=== PATIENT | female | born 1945 | race African-American/Black ===

== ENCOUNTER 2016-09-15 21:53 | Inpatient (IN) | payer MEDICARE, OTHER ==
[~2016-09-15] VITALS: Ht 160 cm; Wt 88.9 kg
[~2016-09-15 21:53] MED LIST: CLON0.1T78 PO; ENAL20TA31 PO; FURO-570 PO; GLYB2.5T6 PO; METF500T64 PO; METO-352 PO; POTA8CER PO
[2016-09-15 21:55] VITALS: BP 155/80
--- NOTE | 2016-09-16 01:25 | NUR ---
TO ER BED 4
--- NOTE | 2016-09-16 01:38 | NUR ---
PATIENT C/O DIZZINESS, H/A, CHILLS , SEEN BY PMD THIS MORNING WITH PRESCRIPTION BUT NOT YET DELIVERED YET DENIES N/V/D; SKIN IS PINK/WARM/DRY; AAOX4 WITH EVEN AND STEADY GAIT; LUNGS CLEAR BL; HR EVEN AND REGULAR; PT DENIES ANY FEVER, CP, SOB, OR COUGH AT THIS TIME; PATIENT STATES PAIN OF 8/10 AT THIS TIME; VSS; PATIENT POSITIONED FOR COMFORT; HOB ELEVATED; BEDRAILS UP X2; BED DOWN. ER MD MADE AWARE OF PT STATUS.
--- NOTE | 2016-09-16 01:45 | NUR ---
Patient being evaluated by physician at bedside.
[2016-09-16 01:59] LABS: BASOPHILS % (AUTO) 0.3 % (0.0-2.0); EOSINOPHILS # (AUTO) 0.1 K/uL (0-0.4); HEMATOCRIT 38.6 % (36-48); HEMOGLOBIN 12.7 g/dL (12.0-16.0); LYMPHOCYTES # (AUTO) 0.6 K/uL (2.5-16.5); LYMPHOCYTES % (AUTO) 4.3 % (20.5-51.1); MEAN CORPUSCULAR HEMOGLOBIN 26 pg (27-31); MEAN CORPUSCULAR HGB CONC 33 g/dL (33-37); MEAN CORPUSCULAR VOLUME 79 fL (80-94); MONOCYTES # (AUTO) 0.6 K/uL (0.8-1.0); MONOCYTES % (AUTO) 4.9 % (1.7-9.3); NEUTROPHILS # (AUTO) 11.9 K/uL (1.8-7.7); NEUTROPHILS % (AUTO) 89.5 % (42.2-75.2); PLATELET COUNT (AUTO) 207 K/uL (140-450); RED BLOOD CELL COUNT(AUTO) 4.88 MIL/uL (4.20-5.40); RED CELL DISTRIBUTION WIDTH 13.3 % (11.6-13.7); WHITE BLOOD COUNT (AUTO) 13.2 K/uL (4.8-10.8)
[2016-09-16 02:09] LABS: ANION GAP 10.2 (8-16); CALCIUM 8.5 mg/dL (8.5-10.1); CARBON DIOXIDE 27.1 mmol/L (21-32); CHLORIDE 100 mmol/L (98-107); CREATININE 1.2 mg/dL (0.6-1.3); GLUCOSE 205 mg/dL (74-106); POTASSIUM 3.3 mmol/L (3.5-5.1); SODIUM SERUM 134 mmol/L (136-145); UREA NITROGEN, BLOOD 16 mg/dL (7-18)
[2016-09-16 02:15] LABS: ALANINE AMINOTRANSFERASE 31 U/L (12-78); ALBUMIN 2.9 g/dL (3.4-5.0); ALKALINE PHOSPHATASE 73 U/L (46-116); ASPARTATE AMINOTRANSFERASE 36 U/L (15-37); TOTAL BILIRUBIN 0.7 mg/dL (0.0-1.0); TOTAL PROTEIN, SERUM 7.2 g/dL (6.4-8.2)
[2016-09-16 02:19] LABS: INR 1.3 (0.8-1.2); PROTHROMBIN TIME 12.2 secs (10.8-13.4)
[2016-09-16 02:29] LABS: APPEARANCE,URINE CLEAR (CLEAR); BILIRUBIN,URINE 1+ (NEGATIVE); BLOOD, URINE 2+ (NEGATIVE); COLOR,URINE YELLOW (YELLOW); LEUKOCYTE ESTERASE ,URINE NEGATIVE (NEGATIVE); NITRITE, URINE NEGATIVE (NEGATIVE); PROTEIN,URINE 2+ (NEGATIVE); UGLUCOSE NEGATIVE (NEGATIVE)
[2016-09-16 02:41] LABS: BACTERIA,URINE 2+ /HPF (None Seen); ICTOTEST NEGATIVE (NEGATIVE); RBC,URINE 0-3 /HPF (0-5); SQUAMOUS EPITHELIAL CELL,UR 0-3 /LPF (0-3 (FEW)); WBC,URINE 0-3 /HPF (0-5)
[2016-09-16 02:42] LABS: MUCUS,URINE 1+ /LPF (None Seen)
[2016-09-16] MEDS ORDERED: LEVOFLOXACIN 750 MG/D5W PREMIX 150 ML IV ONE (03:00)
--- NOTE | 2016-09-16 03:48 | NUR ---
PT C/O QUEVEDO, TYLENOL GIVEN.
[2016-09-16] MEDS ORDERED: ACETAMINOPHEN EXTRA STRENGTH 500 MG TAB PO ONE (03:50)
--- NOTE | 2016-09-16 04:42 | NUR ---
Patient will be admitted to care of DR HOWELL. Admited to MED SURG. Will go to room 105A. Belongings list completed. Report to MARISEL Santa.
[2016-09-16 05:05] VITALS: BP 188/90
--- NOTE | 2016-09-16 05:05 | NUR ---
Admitted from ER TO MED SURGICAL UNIT, with chief complaint of SHORTNESS OF BREATH , 70 y/o ,Female, Cooperative, AWAKE, A/OX4. RESPIRATION EVEN AND UNLABORED. LUNG SOUNDS DIMINISHED ON BILATERAL LUNG AUSCULTATION. WITH NOTED COUGHING, STATED SPUTUM, MINIMAL AMOUNT BUT COLOR IS YELLOW. 02 SAT - 92% ON ROOM AIR. WITH PITTING EDEMA 2+ ON BILATERAL LOWER EXTREMITIES. SKIN INTACT. COMPLAINT OF GENERALIZED BODY WEAKNESS AND PAIN, 4/10. WILL CALL MD FOR ORDERS. oriented to call light, bed, phone,television, bathroom, smoking policy,visiting hours, procedures, ID bracelet on. Belongings list checked.
--- NOTE | 2016-09-16 05:15 | NUR ---
Patient's Plan of Care was discussed and reviewed with HOSPITAL CHIEF EXECUTIVE OFFICER: DONG BERMUDEZ
--- NOTE | 2016-09-16 05:20 | NUR ---
PUT ON 02 AT 2 LITERS ORDERED, 02 SAT INCREASE FROM 92% TO 98%,
--- NOTE | 2016-09-16 06:00 | NUR ---
INFORMED DR. HOWELL REGARDING PATIENTS K LEVEL, REQUEST FOR PAIN MEDICATION, AND BP MEDICATIONS AT HOME, PATIENT IS DIABETIC. WILL ORDER IN THE COMPUTER ALL NEEDED MEDICATIONS FOR THE PATIENT.
[2016-09-16] MEDS ORDERED: ACETAMINOPHEN 325 MG TAB PO PRN (06:10)
[2016-09-16] MEDS ORDERED: DEXTROSE 50% 50 ML SYR IVP PRN (06:10)
[2016-09-16] MEDS ORDERED: LORazepam 2 MG/ML VIAL IVP PRN (06:10)
[2016-09-16] MEDS ORDERED: HYDROcodone/APAP 5/325 MG 1 TAB TAB PO PRN (06:10)
[2016-09-16] MEDS ORDERED: ONDANSETRON 4 MG/2 ML VIAL IVP PRN (06:10)
[2016-09-16] MEDS: ACETAMINOPHEN 325 MG TAB PO PRN ×3 (06:51→21:00)
--- NOTE | 2016-09-16 06:51 | NUR ---
WITH FEVER - 101.4, MEDICATED WITH TYLENOL 650 MG. PO.
[2016-09-16] MEDS: BLOOD GLUCOSE MONITORING 1 DEV DEV FS SCH ×4 (06:58→21:00)
[2016-09-16] MEDS: LEVOFLOXACIN 500 MG/D5W PREMIX 100 ML IV SCH (07:00)
--- NOTE | 2016-09-16 07:12 | NUR ---
RECEIVED REPORT FROM NIGHT METAL WIRE TECHNICIAN. PT RESTING IN BED. NO S/S OF ACUTE DISTRESS. ON O2 2L NC. IV SITE PATENT AND INTACT. PT DENIES PAIN. CALL LIGHT WITHIN REACH. SAFETY MEASURES ENSURED. WILL CONTINUE TO MONITOR.
--- NOTE | 2016-09-16 07:52 | NUR ---
RESTING IN BED, NO SOB NOTED. ENDORSED TO MARISEL FISH FOR MONITORING OF TEMPERATURE AND CONTINUITY OF CARE.
[2016-09-16 08:14] VITALS: BP 160/85
[2016-09-16] MEDS: ENALAPRIL 10 MG TAB PO SCH (09:00)
[2016-09-16] MEDS: cloNIDine 0.1 MG TAB PO SCH ×2 (09:09→21:00)
[2016-09-16] MEDS: METOPROLOL SUCCINATE 50 MG TABER PO SCH (09:10)
[2016-09-16] MEDS: POTASSIUM CHLORIDE 8 MEQ TABER PO SCH (09:10)
[2016-09-16] MEDS: glyBURIDE 2.5 MG TAB PO SCH (09:10)
[2016-09-16] MEDS: FUROSEMIDE 40 MG TAB PO SCH (09:10)
[2016-09-16] MEDS: metFORMIN 500 MG TAB PO SCH ×2 (09:10→20:59)
--- NOTE | 2016-09-16 09:13 | NUR ---
PATIENT HAS BEEN SCREENED AND CATEGORIZED HIGH NUTRITION RISK. PATIENT WILL BE SEEN WITHIN 1-2 DAYS OF ADMISSION. 09/16/16-09/17/[address]
--- NOTE | 2016-09-16 09:43 | NUR ---
PT TOLERATED AM MEDS WELL. AAOX4. NO S/S OF ACUTE DISTRESS. ON O2 2L NC. PT DENIES PAIN. CALL LIGHT WITHIN REACH. SAFETY MEASURES ENSURED. WILL CONTINUE TO MONITOR.
[2016-09-16 11:30] VITALS: BP 208/110
--- NOTE | 2016-09-16 11:40 | NUR ---
PAGED DR. HOWELL REGARDING BLOOD PRESSURE. AWAITING CALL BACK.
--- NOTE | 2016-09-16 12:00 | NUR ---
PT REFUSED INSULIN AT THIS TIME BECAUSE SHES DOESN'T FEEL LIKE EATING OR DRINKING ANYTHING.
--- NOTE | 2016-09-16 12:11 | NUR ---
09/16/16 RD INITIAL ASSESSMENT COMPLETED PLEASE REFER TO NUTRITION ASSESSMENT UNDER CARE ACTIVITY FOR ESTIMATED NUTRITIONAL NEEDS. RD RECOMMENDATIONS: 1. CONTINUE CCHO 60 GM, 2GM NA DIET TOLERATED PER MD 2. ENCOURAGE ADEQUATE PO INTAKE 3. RD WILL F/U 3-5 DAYS; MODERATE RISK. LUDIVINA HALLMAN RD
[2016-09-16] MEDS: cloNIDine 0.1 MG TAB PO PRN ×2 (12:12→23:56)
[2016-09-16] MEDS ORDERED: guaiFENesin DM SUGAR FREE 100 MG/5 ML UDBTL PO PRN (12:25)
--- NOTE | 2016-09-16 12:30 | NUR ---
PT RESTING IN BED. NO S/S OF ACUTE DISTRESS PT'S BP IS 183/103. NO S/S OF ACUTE DISTRESS. PT DENIES PAIN. ON O2 2L NC. CALL LIGHT WITHIN REACH. SAFETY MEASURES ENSURED. WILL CONTINUE TO MONITOR.
[2016-09-16] MEDS: INSULIN LISPRO SLIDING SCALE 100 UNITS/ML VIAL SUBQ PRN (13:43)
--- NOTE | 2016-09-16 13:43 | NUR ---
CM NOTE PER ANTHONY JACKSON WHO IS COVERING FOR [facility] TODAY, REVIEWS SHOULD BE SENT TO [facility] FAX# [phone] PH# [phone]. INITIAL REVIEW SENT TO [facility] FAX# [phone] PH# [phone] [facility]
--- NOTE | 2016-09-16 15:26 | NUR ---
PT RESTING IN BED. NO S/S OF ACUTE DISTRESS. PT DENIES PAIN. IV SITE PATENT AND INTACT. CALL LIGHT WITHIN REACH. SAFETY MEASURES ENSURED. WILL CONTINUE TO MONITOR.
[2016-09-16 16:00] VITALS: BP 168/88
--- NOTE | 2016-09-16 16:04 | NUR ---
PT RESTING IN BED. NO S/S OF ACUTE DISTRESS NOTED. COOLING MEASURES IN PLACE. TYLENOL GIVEN. WILL CONTINUE TO MONITOR.
--- NOTE | 2016-09-16 16:49 | NUR ---
PT'S BLOOD GLUCOSE 68. APPLE JUICE WITH 3 PACKETS OF SUGAR GIVEN. UPON RECHECK BLOOD GLUCOSE IS 91
--- NOTE | 2016-09-16 19:28 | NUR ---
ENDORSED PLAN OF CARE TO NIGHT RN. PT REMAINS IN STABLE CONDITION.
--- NOTE | 2016-09-16 19:30 | NUR ---
RECEIVED REPORT FORM DAY NURSEPOLINA. PATIENT RESTING IN BED, WATCHING TELEVISION. NO RESPIRATORY DISTRESS, SOB, OR DISCOMFORT. INITIAL ASSESSMENT AND BODY CHECK DONE. PATIENT IS AOX4, SKIN IS INTACT, IV ACCESS TO LEFT AC 20G, PATENT. PITTING EDEMA NOTED TO BLE. DISCUSSED PLAN OF CARE, MEDICATION REGIMENT, AND PAIN MANAGEMENT WITH PATIENT. PATIENT VERBALIZED UNDERSTANDING. PLACED PATIENT ON SAFETY/FALL PRECAUTIONS. CALL LIGHT LEFT WITHIN REACH, WILL CONTINUE TO MONITOR.
--- NOTE | 2016-09-16 21:57 | NUR ---
PATIENT IN BED, SLEEPING. NO RESPIRATORY DISTRESS, SOB, OR DISCOMFORT. CALL LIGHT LEFT WITHIN REACH, WILL CONTINUE TO MONITOR.
[2016-09-17] VITALS (19 sets, daily range): BP systolic 134–213; BP diastolic 64–127
[2016-09-17] MEDS ORDERED: CLINDAMYCIN 600 MG/4 ML VIAL ONE ×2 (00:22→05:00)
--- NOTE | 2016-09-17 00:50 | NUR ---
PATIENT RESTING IN BED, WATCHING TELEVISION. NO RESPIRATORY DISTRESS, SOB, OR DISCOMFORT. CALL LIGHT LEFT WITHIN REACH, WILL CONTINUE TO MONITOR.
[2016-09-17] MEDS: cloNIDine 0.1 MG TAB PO PRN ×4 (01:30→15:14)
--- NOTE | 2016-09-17 03:05 | NUR ---
PATIENT ASLEEP. NO RESPIRATORY DISTRESS, SOB, OR DISCOMFORT. CALL LIGHT LEFT WITHIN REACH, WILL CONTINUE TO MONITOR.
[2016-09-17] MEDS ORDERED: CLINDAMYCIN 600 MG in DEXTROSE 5% 50 ML IV SCH ×3 (05:00)
[2016-09-17 06:01] LABS: BASOPHILS % (AUTO) 0.4 % (0.0-2.0); EOSINOPHILS # (AUTO) 0.2 K/uL (0-0.4); HEMATOCRIT 39.6 % (36-48); HEMOGLOBIN 12.9 g/dL (12.0-16.0); LYMPHOCYTES # (AUTO) 1.3 K/uL (2.5-16.5); LYMPHOCYTES % (AUTO) 10.7 % (20.5-51.1); MEAN CORPUSCULAR HEMOGLOBIN 26 pg (27-31); MEAN CORPUSCULAR HGB CONC 33 g/dL (33-37); MEAN CORPUSCULAR VOLUME 80 fL (80-94); MONOCYTES # (AUTO) 0.9 K/uL (0.8-1.0); NEUTROPHILS # (AUTO) 9.8 K/uL (1.8-7.7); NEUTROPHILS % (AUTO) 79.9 % (42.2-75.2); PLATELET COUNT (AUTO) 225 K/uL (140-450); RED BLOOD CELL COUNT(AUTO) 4.98 MIL/uL (4.20-5.40); RED CELL DISTRIBUTION WIDTH 13.6 % (11.6-13.7); WHITE BLOOD COUNT (AUTO) 12.2 K/uL (4.8-10.8)
--- NOTE | 2016-09-17 06:03 | NUR ---
PATIENT SLEEPING. NO RESPIRATORY DISTRESS, SOB, OR DISCOMFORT. CALL LIGHT LEFT WITHIN REACH, WILL CONTINUE TO MONITOR.
[2016-09-17 06:29] LABS: ANION GAP 9.5 (8-16); CALCIUM 8.9 mg/dL (8.5-10.1); CARBON DIOXIDE 29.5 mmol/L (21-32); CHLORIDE 102 mmol/L (98-107); CREATININE 0.9 mg/dL (0.6-1.3); GLUCOSE 61 mg/dL (74-106); SODIUM SERUM 138 mmol/L (136-145); UREA NITROGEN, BLOOD 13 mg/dL (7-18)
[2016-09-17] MEDS: BLOOD GLUCOSE MONITORING 1 DEV DEV FS SCH ×5 (06:30→20:50)
--- NOTE | 2016-09-17 06:30 | NUR ---
PATIENT BLOOD GLUCOSE LEVEL 59. PATIENT IS AWAKE AND ALERT. EASILY AROUSABLE TO NAME. ADMINISTERED 1 BOX OF ORANGE JUICE, WILL REASSESS.
[2016-09-17] MEDS: LEVOFLOXACIN 500 MG/D5W PREMIX 100 ML IV SCH (06:33)
--- NOTE | 2016-09-17 06:45 | NUR ---
PATIENT GLUCOSE LEVEL RE-CHECKED FOLLOWING ORANGE JUICE ADMINISTRATION, LEVEL AT 90. NO RESPIRATORY DISTRESS, SOB, OR DISCOMFORT. CALL LIGHT LEFT WITHIN REACH, WILL CONTINUE TO MONITOR.
--- NOTE | 2016-09-17 07:22 | NUR ---
REPORT GIVEN TO DAY NURSE, CLAUDIA. PATIENT RESTING IN BED, STABLE. NO RESPIRATORY DISTRESS, SOB, OR DISCOMFORT. ALL NEEDS ATTENDED TO DURING SHIFT, CALL LIGHT LEFT WITHIN REACH.
--- NOTE | 2016-09-17 07:23 | NUR ---
PT ALERT AND ORIENTED X4, WITH O2 AT 2L/MIN VIA NC, HOB ELEVATED AT LEAST 30 DEGREES. NO SIGNS OF ACUTE DISTRESS. SKIN IS WARM AND DRY. NO SIGNS OF ANY BOWEL/BLADDER DISCOMFORT. DENIES OF ANY PAIN OR DISCOMFORT. ALL NEEDS ATTENDED, SAFETY PRECAUTIONS MAINTAINED. CALL LIGHT WITHIN REACH.
[2016-09-17] MEDS: FUROSEMIDE 40 MG TAB PO SCH (08:25)
[2016-09-17] MEDS: metFORMIN 500 MG TAB PO SCH ×2 (08:25→20:50)
[2016-09-17] MEDS: cloNIDine 0.1 MG TAB PO SCH ×2 (08:26→20:00)
[2016-09-17] MEDS: POTASSIUM CHLORIDE 8 MEQ TABER PO SCH (08:26)
[2016-09-17] MEDS: glyBURIDE 2.5 MG TAB PO SCH (08:26)
[2016-09-17] MEDS: METOPROLOL SUCCINATE 50 MG TABER PO SCH (08:26)
[2016-09-17] MEDS: ACETAMINOPHEN 325 MG TAB PO PRN ×2 (08:30→20:44)
[2016-09-17] MEDS: ENALAPRIL 10 MG TAB PO SCH (08:31)
--- NOTE | 2016-09-17 08:35 | NUR ---
NOTED PT'S BP ELEVATED 199/118, PAGED DR. HOWELL, Y. DUE MEDS GIVEN. ALSO C/O OF HEADACHE 02/02. SEE PAIN ASSESSMENT FOR MORE INFO. AWAITING FOR MD'S RESPONSE. WILL CONTINUE TO MONITOR.
--- NOTE | 2016-09-17 08:36 | NUR ---
CHARGE NURSE AWARE OF ELEVATED BP.
--- NOTE | 2016-09-17 09:02 | NUR ---
/SPOKE WITH Rachel DAI. REPORTED PT'S CURRENT BP 200/127. NEW MED AND IMAGING ORDERS RECEIVED. NOTED AND CARRIED OUT. PT IS ASLEEP IN BED. ON SIGNS OF ACUTE DISTRESS AT THIS TIME. CONTINUE TO MONITOR.
[2016-09-17] MEDS: hydrALAZINE 20 MG/ML VIAL IVP PRN ×2 (09:19→17:31)
[2016-09-17] MEDS: SPIRONOLACTONE 25 MG TAB PO SCH ×2 (09:21→16:55)
--- NOTE | 2016-09-17 09:35 | NUR ---
SPOKE WITH DR. LYNDA Hodge. REPORT PT'S CURRENT STATUS. RECEIVED NEW ORDER TO TRANSFER CARE TO TELEMETRY MONITORING. NOTED AND CARRIED OUT. DR. JUNIOR ALSO ON THE UNIT. SEEN PT AND ALSO MADE AWARE OF PT'S CURRENT STATUS. CONTINUE TO MONITOR.
--- NOTE | 2016-09-17 09:39 | NUR ---
WAS NOTIFIED BY DR. JUNIOR AND CHARGE NURSE TO TRANSFER TO ICU. CHARGE NURSE TO CALL FOR AVAILABLE BED. PT MADE AWARE.
--- NOTE | 2016-09-17 10:00 | NUR ---
PT ALERT AND RESPONSIVE, NO SIGNS OF ACUTE DISTRESS. WENT OFF UNIT FOR CT. CALLED ABILIO JOINER ICU AND GIVEN REPORT. PT TO BE TRANSPORTED TO ICU AFTER PROCEDURE.
[2016-09-17] MEDS ORDERED: POTASSIUM CHLORIDE 10 MEQ TABER PO SCH (10:25)
--- NOTE | 2016-09-17 10:27 | NUR ---
DR HOWELL, Ayesha ON UNIT. REPORTED PT TRANSFERRED TO ICU. RECEIVED LAB AND MED ORDERS. ENDORSED TO ICU NURSE ABILIO.
--- NOTE | 2016-09-17 10:30 | NUR ---
RECEIVED FROM TELE IN BED, SHE IS LETHALGIC AT THE TIME, AWAKE BY NAME CALL SKIN IS DRY AND WARM TO TOUCH. HAS O2 2L/NC IV FLUID HAS #20 ON LEFT AC ABD SOFT SKIN INTACT SHE IS ADMITED TO ICU #5.
--- NOTE | 2016-09-17 12:00 | NUR ---
RECEIVED REPORT FROM CHARGE NURSE ABILIO JOINER. PT AWAKE, ALERT AND ORIENTED. BEDSIDE MONITOR SHOWS BP 144/87, HR 83, O2 SAT 99% AT THIS TIME. PT ON O2 NC 2L/MIN. NO S/S OF RESPIRATORY DISTRESS NOTED. IV TO LEFT AC #20 SALINE LOCKED. SKIN INTACT, PT CAN MOVE ALL HER EXTREMITIES. POC DISCUSSED WITH PT, PT VERBALIZED UNDERSTANDING, HOB ELEVATED 30 DEGREES, CALL LIGHT IN REACH, WILL CONTINUE TO MONITOR.
--- NOTE | 2016-09-17 12:30 | NUR ---
BEDPAN GIVEN TO PT, PT HAD 250 ML CLEAR YELLOW URINE OUTPUT. CLEANED PT. WILL CONTINUE TO MONITOR.
[2016-09-17] MEDS: CLINDAMYCIN 600 MG in DEXTROSE 5% 50 ML IV SCH ×2 (13:29→20:05)
--- NOTE | 2016-09-17 14:00 | NUR ---
BLOOD SUGAR CHECKED 83.
--- NOTE | 2016-09-17 14:29 | NUR ---
BP 140/95. HR 72. O2 SAT 100%. PT SLEEPING AT THIS TIME.
--- NOTE | 2016-09-17 14:58 | NUR ---
BP 143/84, HR 72. SPO2 97% AT THIS TIME.
--- NOTE | 2016-09-17 15:21 | NUR ---
BLOOD SUGAR CHECKED AT 1453 SHOWS 37. DEXTROSE 50% ABBOJECT 50 ML IVP GIVEN PER MD ORDER BLOOD SUGAR BELOW 60. AT 1510, SERVED PT BEDPAN, PT HAD 200 ML CLEAR YELLOW URINE OUTPUT. CLEANED PT.RECHECK BLOOD SUGAR AT 1521 SHOWS 172, NO INSULIN COVERAGE NEEDED PT NPO. CHARGE NURSE ACEVEDO AWARE.
--- NOTE | 2016-09-17 15:46 | NUR ---
US TECH AT BEDSIDE.
--- NOTE | 2016-09-17 17:30 | NUR ---
DINNER TRAY SERVED. PT'S SON AT BEDSIDE. PT HAD 70% OF THE FOOD. PT CHATTING WITH FAMILY
--- NOTE | 2016-09-17 18:37 | NUR ---
PT AWAKE,ALERT, AND ORIENTED. BP 151/87. HR 92. O2 SAT 98%.
--- NOTE | 2016-09-17 19:02 | NUR ---
PT AWAKE, ALERT, AND ORIENTED. NO S/S OF RESPIRATORY DISTRESS NOTED. BP 156/64. HR 88. O2 SAT 97% AT THIS TIME.
--- NOTE | 2016-09-17 19:24 | NUR ---
BEDSIDE REPORT GIVEN TO RADHA JOINER.
--- NOTE | 2016-09-17 19:24 | NUR ---
RECEIVED REPORT FROM DAY SHIFT RN MAGAN. FULL CODE, ON GANG PLANK WORKMAN, HIGH BP. AWAKE, ALERT, ORIENTED. WITH OXYGEN AT 2LPM/NASAL CANNULA. PERIPHERAL IV G20 ON LEFT ARM SALINE LOCK. SKIN INTACT.
--- NOTE | 2016-09-17 20:00 | NUR ---
PATIENT SEEN AND EXAMINED BY DR. HOWELL. INFORMED OF HIGH BP TRENDS.
--- NOTE | 2016-09-17 20:30 | NUR ---
CALLED FROM PHARMACY [facility] ORDER CLONIDINE 0.2 MG TID ,PHARMACY TOLD HIGH DOSE PER DAY NORMAL 0.4 MG/DAY, DR LYNDA Jimenez IS HERE , HE WANT ORDER BECAUSE PT IS HIGH BP, PHARMACY EXCEPT MD ORDER.
--- NOTE | 2016-09-17 21:00 | NUR ---
DR. KOO CAME IN TO SEE PATIENT. UPDATE OF PATIENT STATUS GIVEN.
[2016-09-17 21:04] LABS: FREE T4 (FREE THYROXINE) 1.35 ng/dL (0.76-1.46); THYROID STIMULATING HORMONE 1.53 uIU/mL (0.34-3.76)
--- NOTE | 2016-09-17 22:00 | NUR ---
PATIENT HAD SNACK. PATIENT TOLERATED. NO VOMITING NOTED. BLOOD SUGAR = 94 AT 2100, METFORMIN NOT GIVEN DUE TO PREVIOUS EPISODES OF HYPOGLYCEMIA FROM PREVIOUS SHIFT.
--- NOTE | 2016-09-17 23:58 | NUR ---
SLEEPING AT THIS TIME. NO SIGNS OF DISCOMFORT OR RESPIRATORY DISTRESS AT THIS TIME. PATIENT TURNS ON BED HERSELF.
[2016-09-18] VITALS (10 sets, daily range): BP systolic 134–184; BP diastolic 67–114
--- NOTE | 2016-09-18 01:48 | NUR ---
ASSISTED PATIENT WITH TURNING AND REPOSITIONING. JUICE OFFERED AND TOLERATED. NO SIGNS OF DISTRESS OR DISCOMFORT AT THIS TIME. CALL LIGHT AT BEDSIDE.
[2016-09-18] MEDS: ACETAMINOPHEN 325 MG TAB PO PRN ×2 (02:05→14:09)
[2016-09-18] MEDS: cloNIDine 0.1 MG TAB PO PRN (02:25)
--- NOTE | 2016-09-18 02:25 | NUR ---
BP = 197/114, CLONIDINE PO PRN GIVEN. PATIENT VERBALIZED HEADACHE ALSO. WILL RECHECK BP AFTER 30MINS.
--- NOTE | 2016-09-18 03:03 | NUR ---
BP = 160/93. PATIENT ASLEEP.
--- NOTE | 2016-09-18 03:56 | NUR ---
SLEEPING COMFORTABLY AT THIS TIME. NO SIGNS OF DISTRESS OR DISCOMFORT AT THIS MOMENT. PATIENT TURNS BY HERSELF ON BED. CALL LIGHT AT BEDSIDE.
[2016-09-18] MEDS: CLINDAMYCIN 600 MG in DEXTROSE 5% 50 ML IV SCH ×3 (05:12→20:25)
[2016-09-18 05:47] LABS: BASOPHILS # (AUTO) 0.1 K/uL (0.00-0.22); BASOPHILS % (AUTO) 0.6 % (0.0-2.0); EOSINOPHILS # (AUTO) 0.6 K/uL (0-0.4); EOSINOPHILS % (AUTO) 6.1 % (0.0-4.0); HEMOGLOBIN 12.7 g/dL (12.0-16.0); LYMPHOCYTES # (AUTO) 1.8 K/uL (2.5-16.5); LYMPHOCYTES % (AUTO) 19.3 % (20.5-51.1); MEAN CORPUSCULAR HEMOGLOBIN 26 pg (27-31); MEAN CORPUSCULAR HGB CONC 33 g/dL (33-37); MEAN CORPUSCULAR VOLUME 79 fL (80-94); MONOCYTES # (AUTO) 0.6 K/uL (0.8-1.0); MONOCYTES % (AUTO) 6.5 % (1.7-9.3); NEUTROPHILS # (AUTO) 6.2 K/uL (1.8-7.7); NEUTROPHILS % (AUTO) 67.5 % (42.2-75.2); PLATELET COUNT (AUTO) 264 K/uL (140-450); RED BLOOD CELL COUNT(AUTO) 4.94 MIL/uL (4.20-5.40); RED CELL DISTRIBUTION WIDTH 14.2 % (11.6-13.7); WHITE BLOOD COUNT (AUTO) 9.3 K/uL (4.8-10.8)
--- NOTE | 2016-09-18 06:00 | NUR ---
AM CARE PROVIDED. BRUSHED HER TEETH HERSELF. PROCEDURE TOLERATED. ALL LINENS AND GOWN CHANGED. TURNED SIDE TO SIDE HERSELF.
[2016-09-18 06:12] LABS: ANION GAP 10.7 (8-16); CALCIUM 8.9 mg/dL (8.5-10.1); CARBON DIOXIDE 28.7 mmol/L (21-32); CHLORIDE 102 mmol/L (98-107); CREATININE 0.9 mg/dL (0.6-1.3); GLUCOSE 138 mg/dL (74-106); POTASSIUM 3.4 mmol/L (3.5-5.1); SODIUM SERUM 138 mmol/L (136-145); UREA NITROGEN, BLOOD 13 mg/dL (7-18)
[2016-09-18] MEDS: LEVOFLOXACIN 500 MG/D5W PREMIX 100 ML IV SCH (06:13)
[2016-09-18] MEDS: BLOOD GLUCOSE MONITORING 1 DEV DEV FS SCH ×5 (06:44→20:25)
--- NOTE | 2016-09-18 07:10 | NUR ---
PATIENT REPORT GIVEN TO DAY SHIFT RN ABILIO.
--- NOTE | 2016-09-18 07:15 | NUR ---
RECEIVED REPORT FROM NICHOLE JOINER. SHE IS AWAKE ALERTWELL ORIENTED. .SKIN DRY WARM TO TOUCH .ON O2 AT 2L/NC O2 SAT 98% . V FLUID HAS#20 ON L AC HEP LOCK. DENIED PAIN AT THE TIME.
[2016-09-18] MEDS: glyBURIDE 2.5 MG TAB PO SCH (08:20)
[2016-09-18] MEDS: FUROSEMIDE 40 MG TAB PO SCH (08:21)
[2016-09-18] MEDS: cloNIDine 0.1 MG TAB PO SCH ×3 (08:22→17:26)
[2016-09-18] MEDS: POTASSIUM CHLORIDE 8 MEQ TABER PO SCH (08:22)
[2016-09-18] MEDS: metFORMIN 500 MG TAB PO SCH ×2 (08:22→16:41)
[2016-09-18] MEDS: SPIRONOLACTONE 25 MG TAB PO SCH ×2 (08:23→16:41)
[2016-09-18] MEDS: ENALAPRIL 10 MG TAB PO SCH (08:23)
[2016-09-18] MEDS: METOPROLOL SUCCINATE 50 MG TABER PO SCH (08:23)
--- NOTE | 2016-09-18 09:00 | NUR ---
OOB TO BED SIDE COMMODE VOIDED AND HAS LARGE SOFT BROWN BM.
--- NOTE | 2016-09-18 10:30 | NUR ---
SEEN BY DR. HOWELL AT BEDSIDE , ORDER RECEIVED,
[2016-09-18] MEDS ORDERED: POTASSIUM CHLORIDE 10 MEQ TABER PO SCH ×2 (10:40→15:25)
--- NOTE | 2016-09-18 11:00 | NUR ---
SEEN BY DR. CHANEY AT BEDSIDE , NOORDER CHANGED.
--- NOTE | 2016-09-18 12:00 | NUR ---
BLOOD GLUCOSE 179 INSULIN COVER PRDER.
--- NOTE | 2016-09-18 13:00 | NUR ---
OOB TO BEDSIDE COMMODE VOIDED AND HAS MODERATE AMOUNT SOFT BROWN BM.
--- NOTE | 2016-09-18 16:35 | NUR ---
BLOOD GLUCOSE 166 INSULIN COVER ORDER.
[2016-09-18] MEDS: INSULIN LISPRO SLIDING SCALE 100 UNITS/ML VIAL SUBQ PRN (16:38)
--- NOTE | 2016-09-18 16:45 | NUR ---
CALL TELE AND GICE REPORT TO SYEDA GALLARDO.
--- NOTE | 2016-09-18 17:00 | NUR ---
RECEIVED PT FROM ICU PER BERNADETTE, ASSISTED BY ICU NURSE. AWAKE, ALERT,ORIENTED X4. BREATHING EVEN AND UNLABORED. HOOKED TO 02 AT 2LPM VIA NC. DENIES ANY PAIN OR DISCOMFORT AT THIS TIME. EDEMA BLE NOTED, ELEVATED WITH PILLOWS. KEEP COMFORTABLE IN BED. FALL PRECAUTION APPLIED, CALL LIGHT WITHIN REACH.
--- NOTE | 2016-09-18 17:00 | NUR ---
TRANSFER PT TO 124B IN BED PT IS AWAKE AND ALERT NO DISERESS NOTE.
--- NOTE | 2016-09-18 19:17 | NUR ---
PT IN BED, ALERT, AWAKE AND ORIENTED X4. DENIES ANY PAIN OR DISCOMFORT AT THIS TIME. FAMILY PRESENT AT BEDSIDE. NO ACUTE DISTRESS NOTED. PT KEPT CLEAN, DRY AND COMFORTABLE, NEEDS ATTENDED. ENDORSED TO DEIDRA JOINER.
--- NOTE | 2016-09-18 19:30 | NUR ---
RECEIVED FROM AM RN IN BED. AWAKE. APHASIC. TOTAL CARE. WITH RIGHT SIDED WEAKNESS. TURNED TO SIDES Q 2H. PILLOW SUPPORT TO PRESSURE AREAS.TELEMETRY MONITORING. GT FEEDING HELD RT WITH COFFEE GROUND RESIDUAL AND MORE THAN 100 ML. AM RN CALLED MD PLUNKETT/GI SPECIALIST AND WITH NEW ORDERS GIVEN. FOR EGD /COLONOSCOPY IN A.M. CHARGE NURSE AWARE OF IT. NEEDS WILL BE ANTICIPATED AND WILL BE MET. Addendum: 09/18/16 at 2135 by Lola Thomson RN ABOVE CHARTING ERROR.
--- NOTE | 2016-09-18 19:35 | NUR ---
RECEIVED FROM AM RN IN BED AWAKE AND ALERT. WITH VISITORS TALKING WITH HER. GOOD AFFECT. RE-ORIENTED TO CALL LIGHT USE AND CARE PLANS FOR THE NIGHT DISCUSSED WITH THEM. ORIENTED X 4. REMINDED TO CALL RT WITH DX. OF DIZZINESS. BED ALARM ON. DENIES ANY PAIN AT THIS TIME. TELEMETRY MONITORING.
--- NOTE | 2016-09-18 21:37 | NUR ---
PT. TURNED TO SIDES BY CNAS AND WITH PILLOW SUPPORT PLACED TO PRESSURE AREAS. DRESSING TO SACRAL WOUND INTACT AND DRY. FLACC 0-. NO RESTLESSNESS NOTED. Addendum: 09/18/16 at 2140 by Lola Thomson RN ABOVE CHARTING ERROR.
--- NOTE | 2016-09-18 21:44 | NUR ---
PT. TURNED BY CNAS. ENCOURAGED TO STAY ON THAT SIDE. PT. ABLE TO TURN SELF. REMINDED TO USE CALL LIGHT FOR HELP. STILL AWAKE AND IS WATCHING TV. TELEMETRY MONITORING.
--- NOTE | 2016-09-18 22:11 | NUR ---
PT. ASSISTED TO STAND UP RT WANTS TO USE BEDSIDE COMMODE. ABLE TO USE CALL LIGHT. PT. VERBALIZES WELL. NO COMPLAINTS DONE.
--- NOTE | 2016-09-19 00:18 | NUR ---
SLEEPING. TELEMETRY MONITORING. CALL LIGHT WITH IN REACH.
[2016-09-19] MEDS: cloNIDine 0.1 MG TAB PO PRN (00:53)
[2016-09-19 00:57] VITALS: BP 161/87
[2016-09-19] MEDS: hydrALAZINE 20 MG/ML VIAL IVP PRN ×2 (02:33→11:15)
--- NOTE | 2016-09-19 02:35 | NUR ---
WILL MEDICATED HYDRALAZINE 10 MG. IVP ORDERED PRN FOR SBP ABOVE 160. CLONIDINE GIVEN EARLIER FOR SBP 161. PER PT. CLONIDINE TABLETS HAS NO EFFECT ON HER. A/O X 4.
[2016-09-19] MEDS: ACETAMINOPHEN 325 MG TAB PO PRN ×2 (02:54→08:42)
--- NOTE | 2016-09-19 03:46 | NUR ---
RE-CHECKED SZ=759 OVER 85. HR 83. PT. STATES THAT HER BP WILL STILL GO DOWN RT THE IVP HTN MEDICINE MAKES IT GO DOWN MORE. " I NEED TO SLEEP NOW" PER PT. CLONIDINE TABLETS DON'T WORK WITH HER. WILL ENDORSE TO AM RN FOR CONTINUITY OF CARE.
[2016-09-19] MEDS: CLINDAMYCIN 600 MG in DEXTROSE 5% 50 ML IV SCH ×3 (04:15→20:31)
[2016-09-19 04:27] VITALS: BP 148/80
[2016-09-19] MEDS: BLOOD GLUCOSE MONITORING 1 DEV DEV FS SCH ×4 (05:46→20:37)
--- NOTE | 2016-09-19 06:00 | NUR ---
PT. SLEEPING AT THIS TIME. CALL LIGHT WITH IN REACH. NO RESTLESSNESS. TELEMETRY MONITORING.
[2016-09-19 06:01] LABS: BASOPHILS % (AUTO) 0.5 % (0.0-2.0); EOSINOPHILS # (AUTO) 0.6 K/uL (0-0.4); EOSINOPHILS % (AUTO) 6.1 % (0.0-4.0); HEMATOCRIT 40.2 % (36-48); LYMPHOCYTES # (AUTO) 2.1 K/uL (2.5-16.5); MEAN CORPUSCULAR HEMOGLOBIN 26 pg (27-31); MEAN CORPUSCULAR HGB CONC 32 g/dL (33-37); MEAN CORPUSCULAR VOLUME 80 fL (80-94); MONOCYTES # (AUTO) 0.7 K/uL (0.8-1.0); MONOCYTES % (AUTO) 7.5 % (1.7-9.3); NEUTROPHILS % (AUTO) 63.9 % (42.2-75.2); PLATELET COUNT (AUTO) 315 K/uL (140-450); RED BLOOD CELL COUNT(AUTO) 5.04 MIL/uL (4.20-5.40); RED CELL DISTRIBUTION WIDTH 13.9 % (11.6-13.7); WHITE BLOOD COUNT (AUTO) 9.4 K/uL (4.8-10.8)
[2016-09-19 06:17] LABS: ANION GAP 13.8 (8-16); CARBON DIOXIDE 26.1 mmol/L (21-32); CHLORIDE 102 mmol/L (98-107); GLUCOSE 161 mg/dL (74-106); POTASSIUM 3.9 mmol/L (3.5-5.1); SODIUM SERUM 138 mmol/L (136-145); UREA NITROGEN, BLOOD 18 mg/dL (7-18)
[2016-09-19] MEDS: LEVOFLOXACIN 500 MG/D5W PREMIX 100 ML IV SCH (06:25)
--- NOTE | 2016-09-19 07:35 | NUR ---
PT. LIGHT SLEEPER. ENCOURAGED TO SLEEP EVERY TIME SHE WAKES UP. TELEMETRY MONITORING. ASSISTED TO BSC AT ALL TIMES. ABLE TO USE CALL LIGHT FOR HELP.
--- NOTE | 2016-09-19 07:40 | NUR ---
ENDORSED TO THE NEXT RN FOR CONTINUITY OF CARE.
--- NOTE | 2016-09-19 07:42 | NUR ---
RECEIVED REPORT FROM NIGHT MARISEL GAY. PT RESTING IN BED. AAOX4. NO S/S OF ACUTE DISTRESS. ON O2 2L NC. PT STATES PAIN IS 5/10 HEADACHE. PT WANTS TYLENOL. WILL MEDICATE ORDERED. IV SITE PATENT AND INTACT. 1+ PITTING EDEMA TO BLE NOTED. CALL LIGHT WITHIN REACH. SAFETY MEASURES ENSURED. WILL CONTINUE TO MONITOR.
[2016-09-19 08:00] VITALS: BP 150/122
[2016-09-19] MEDS: POTASSIUM CHLORIDE 8 MEQ TABER PO SCH (08:38)
[2016-09-19] MEDS: cloNIDine 0.1 MG TAB PO SCH ×3 (08:40→17:19)
--- NOTE | 2016-09-19 08:40 | NUR ---
PT STATES SHE IS HAVING CHEST PAIN THAT DOESN'T RADIATE. PT ON O2 2L NC. NO S/S OF ACUTE DISTRESS NOTED. PT REQUESTED TYLENOL. DR. Rachel HOWELL PAGED REGARDING CHEST PAIN.
[2016-09-19] MEDS: metFORMIN 500 MG TAB PO SCH ×2 (08:41→17:11)
[2016-09-19] MEDS: METOPROLOL SUCCINATE 50 MG TABER PO SCH (08:41)
[2016-09-19] MEDS: glyBURIDE 2.5 MG TAB PO SCH (08:41)
[2016-09-19] MEDS: FUROSEMIDE 40 MG TAB PO SCH (08:42)
[2016-09-19] MEDS: SPIRONOLACTONE 25 MG TAB PO SCH ×2 (08:42→17:11)
[2016-09-19] MEDS: ENALAPRIL 10 MG TAB PO SCH (08:43)
--- NOTE | 2016-09-19 10:10 | NUR ---
CM NOTE CONCURRENT REVIEW SENT TO [facility] FAX# [phone] PH# [phone] [facility]
--- NOTE | 2016-09-19 10:33 | NUR ---
PT SLEEPING IN BED. NO S/S OF ACUTE DISTRESS. ON O2 2L NC. PT TOLERATED AM MEDS WELL. CALL LIGHT WITHIN REACH. SAFETY MEASURES ENSURED. WILL CONTINUE TO MONITOR.
[2016-09-19 12:00] VITALS: BP 158/85
--- NOTE | 2016-09-19 12:38 | NUR ---
PT RESTING IN BED. NO S/S OF ACUTE DISTRESS. PT STATES HEADACHE PAIN IS 1/10 AND TOLERABLE. ON O2 2L NC. CALL LIGHT WITHIN REACH. SAFETY MEASURES ENSURED. WILL CONTINUE TO MONITOR.
--- NOTE | 2016-09-19 14:51 | NUR ---
PT IS IN ROOM WITH FAMILY MEMBER TALKING AND WATCHING TV. PATIENT SHOWS NO SIGNS AND SYMPTOMS OF DISTRESS. ON 02 2L. PATIENT IS AWARE OF SAFETY MEASURES. CALL LIGHT IS WITHIN REACH. WILL CONTINUE TO MONITOR PT.
[2016-09-19 16:00] VITALS: BP 154/80
--- NOTE | 2016-09-19 19:18 | NUR ---
ENDORSED PLAN OF CARE TO NIGHT RN. PT REMAINS IN STABLE CONDITION.
--- NOTE | 2016-09-19 19:19 | NUR ---
RECEIVED PT IN STABLE CONDITION FROM MARISEL FISH. NO SOB, NO SIGNS OF DISTRESS. PT IS AOX4, AMBULATES WITH ASSIST AND USES BEDSIDE COMMODE. BLE EDEMA NOTED 1+ PITTING. PT DENIES PAIN AT THIS TIME. PT ON 2L O2 NC. VS STABLE. IV TO LT HAND 22G PATENT, ASYMPTOMATIC, INTACT, SALINE LOCKED. SKIN IS INTACT. PLAN OF CARE DISCUSSED WITH PT. SAFETY MEASURES IN PLACE. CALL LIGHT WITHIN REACH. WILL CONTINUE TO MONITOR.
[2016-09-19 20:00] VITALS: BP 138/81
[2016-09-19] MEDS: INSULIN LISPRO SLIDING SCALE 100 UNITS/ML VIAL SUBQ PRN (20:36)
--- NOTE | 2016-09-19 20:37 | NUR ---
PT TOLERATED DUE IVPB MED WELL. NO SOB, NO SIGNS OF DISTRESS. PT ON 2L O2 NC. IV SITE ASYMPTOMATIC, INTACT, PATENT, IVPB RUNNING. PLAN OF CARE DISCUSSED WITH PT. SAFETY MEASURES IN PLACE. CALL LIGHT WITHIN REACH. WILL CONTINUE TO MONITOR.
[2016-09-20] VITALS: BP 153/75
[2016-09-20] MEDS: hydrALAZINE 20 MG/ML VIAL IVP PRN ×2 (00:11→05:25)
--- NOTE | 2016-09-20 00:11 | NUR ---
BP 153/75 OTHER VS WNL ON ROOM AIR. NO SOB, NO SIGNS OF DISTRESS. ADMINISTERED PRN HYDRALAZINE PER MD ORDER. PT TOLERATED WELL. IV SITE ASYMPTOMATIC, INTACT, PATENT, SALINE LOCKED. PT DENIES PAIN AT THIS TIME. PLAN OF CARE DISCUSSED WITH PT. SAFETY MEASURES IN PLACE. CALL LIGHT WITHIN REACH. WILL CONTINUE TO MONITOR.
[2016-09-20] MEDS: ACETAMINOPHEN 325 MG TAB PO PRN ×2 (01:19→09:04)
[2016-09-20] MEDS: cloNIDine 0.1 MG TAB PO PRN (01:19)
--- NOTE | 2016-09-20 01:19 | NUR ---
REASSESSED HYDRALAZINE: BP 191/107, HR 88, O2 SAT 95 ON ROOM AIR. PT C/O HEADACHE. MEDICATED PT WITH TYLENOL, AND CLONIDINE FOR HTN PER MD ORDER. NO SOB, NO SIGNS OF DISTRESS. IV SITE ASYMPTOMATIC, INTACT, PATENT, SALINE LOCKED. PLAN OF CARE DISCUSSED WITH PT. SAFETY MEASURES IN PLACE. CALL LIGHT WITHIN REACH. SCDS IN PLACE. WILL CONTINUE TO MONITOR.
--- NOTE | 2016-09-20 02:49 | NUR ---
REASSESSED CLONIDINE, BP 160/100. O2 95% ON ROOM AIR, HR 88. NO SOB, NO SIGNS OF DISTRESS. PT DENIES PAIN AT THIS TIME. TOLD PT I WILL RECHECK BP AT 0400 TO SEE IF IT GOES ANY LOWER, PT VERBALIZED UNDERSTANDING. PLAN OF CARE DISCUSSED WITH PT. SAFETY MEASURES IN PLACE. CALL LIGHT WITHIN REACH. WILL CONTINUE TO MONITOR.
[2016-09-20 04:00] VITALS: BP 160/90
--- NOTE | 2016-09-20 04:05 | NUR ---
BP 160/100, OTHER VS WNL. PT ON 2L O2 NC. DISCUSSED MEDICATIONS WITH PT. PT STATED HYDRALAZINE ONLY MAKES HER BP GO UP SO SHE WANTS WAIT UNTIL CLONIDINE IS DUE AND WANTS TO CHECK HER BP THEN. NO SOB, NO SIGNS OF DISTRESS. PT DENIES PAIN AT THIS TIME. IV SITE ASYMPTOMATIC, INTACT, PATENT, SALINE LOCKED. WILL RECHECK BP AT 0519 WHEN CLONIDINE IS DUE. PLAN OF CARE DISCUSSED WITH PT. SAFETY MEASURES IN PLACE. CALL LIGHT WITHIN REACH. WILL CONTINUE TO MONITOR. Addendum: 09/20/16 at 0455 by Shaina Waldron RN BP 160/90
[2016-09-20] MEDS: CLINDAMYCIN 600 MG in DEXTROSE 5% 50 ML IV SCH ×3 (04:25→20:34)
--- NOTE | 2016-09-20 05:25 | NUR ---
BP 161/103, HR 89, O2 98 ON 2L O2 NC. SPOKE WITH PT ABOUT MEDICATION, PT AGREED TO TRY HYDRALAZINE, MEDICATED PT PER MD ORDER. PT TOLERATED WELL. NO SOB, NO SIGNS OF DISTRESS. PT DENIES PAIN AT THINS TIME. PLAN OF CARE DISCUSSED WITH PT. SAFETY MEASURES IN PLACE. CALL LIGHT WITHIN REACH. WILL CONTINUE TO MONITOR.
[2016-09-20 06:25] LABS: BASOPHILS # (AUTO) 0.1 K/uL (0.00-0.22); BASOPHILS % (AUTO) 1.2 % (0.0-2.0); EOSINOPHILS # (AUTO) 0.6 K/uL (0-0.4); EOSINOPHILS % (AUTO) 6.3 % (0.0-4.0); HEMATOCRIT 40.9 % (36-48); LYMPHOCYTES # (AUTO) 2.5 K/uL (2.5-16.5); LYMPHOCYTES % (AUTO) 25.2 % (20.5-51.1); MEAN CORPUSCULAR HEMOGLOBIN 25 pg (27-31); MEAN CORPUSCULAR HGB CONC 32 g/dL (33-37); MEAN CORPUSCULAR VOLUME 79 fL (80-94); MONOCYTES # (AUTO) 0.8 K/uL (0.8-1.0); MONOCYTES % (AUTO) 7.7 % (1.7-9.3); NEUTROPHILS # (AUTO) 5.9 K/uL (1.8-7.7); NEUTROPHILS % (AUTO) 59.6 % (42.2-75.2); PLATELET COUNT (AUTO) 377 K/uL (140-450); RED BLOOD CELL COUNT(AUTO) 5.16 MIL/uL (4.20-5.40); RED CELL DISTRIBUTION WIDTH 14.8 % (11.6-13.7); WHITE BLOOD COUNT (AUTO) 9.9 K/uL (4.8-10.8)
--- NOTE | 2016-09-20 06:25 | NUR ---
REASSESSED HYDRALAZINE. BP 155/88, HR 98, O2 97. NO SOB, NO SIGNS OF DISTRESS. IV SITE ASYMPTOMATIC, INTACT, PATENT, IVPB RUNNING. PT DENIES PAIN AT THIS TIME. PLAN OF CARE DISCUSSED WITH PT. SAFETY MEASURES IN PLACE. CALL LIGHT WITHIN REACH. WILL CONTINUE TO MONITOR. WILL ENDORSE TO AM ABOUT BP ISSUE AND TO MAKE MD AWARE.
[2016-09-20] MEDS: LEVOFLOXACIN 500 MG/D5W PREMIX 100 ML IV SCH (06:37)
[2016-09-20] MEDS: BLOOD GLUCOSE MONITORING 1 DEV DEV FS SCH ×4 (06:37→20:34)
[2016-09-20] MEDS: INSULIN LISPRO SLIDING SCALE 100 UNITS/ML VIAL SUBQ PRN ×2 (06:40→20:41)
[2016-09-20 06:56] LABS: ANION GAP 9.7 (8-16); CALCIUM 9.1 mg/dL (8.5-10.1); CARBON DIOXIDE 30.4 mmol/L (21-32); CHLORIDE 103 mmol/L (98-107); GLUCOSE 156 mg/dL (74-106); POTASSIUM 4.1 mmol/L (3.5-5.1); SODIUM SERUM 139 mmol/L (136-145); UREA NITROGEN, BLOOD 18 mg/dL (7-18)
--- NOTE | 2016-09-20 07:18 | NUR ---
ENDORSED PT IN STABLE CONDITION TO MARISEL BANERJEE AND MARISEL FISH. ALL NEEDS HAVE BEEN MET AT THIS TIME.
--- NOTE | 2016-09-20 07:30 | NUR ---
RECEIVED REPORT FROM NIGHT NURSE. PT RESTING IN BED. NO S/S OF ACUTE DISTRESS. ON O2 2L NC. AOX4. IV SITE PATENT AND INTACT. +1 PITTING EDEMA NOTED ON BLE. SCDS AT BEDSIDE. PT STATES PAIN 5/10 HEADACHE. PT REQUESTS TYLENOL. CALL LIGHT WITHIN REACH. SAFETY MEASURES ENSURED. WILL CONTINUE TO MONITOR.
[2016-09-20 08:00] VITALS: BP 160/92
[2016-09-20] MEDS: metFORMIN 500 MG TAB PO SCH ×2 (08:52→17:13)
[2016-09-20] MEDS: ENALAPRIL 10 MG TAB PO SCH (09:00)
[2016-09-20] MEDS: glyBURIDE 2.5 MG TAB PO SCH (09:01)
[2016-09-20] MEDS: SPIRONOLACTONE 25 MG TAB PO SCH ×2 (09:02→17:12)
[2016-09-20] MEDS: METOPROLOL SUCCINATE 50 MG TABER PO SCH ×2 (09:02→20:34)
[2016-09-20] MEDS: FUROSEMIDE 40 MG TAB PO SCH (09:02)
[2016-09-20] MEDS: cloNIDine 0.1 MG TAB PO SCH ×2 (09:03→17:13)
[2016-09-20] MEDS: POTASSIUM CHLORIDE 8 MEQ TABER PO SCH (09:11)
[2016-09-20 09:18] LABS: CORTISOL SERUM 17.1 ug/dL (.)
--- NOTE | 2016-09-20 10:30 | NUR ---
PT TOLERATED AM MEDS WELL. NO S/S OF DISTRESS. ON O2 1L NC. CALL WITHIN REACH. SAFETY MEASURES ENSURED. WILL CONTINUE TO MONITOR.
[2016-09-20 12:00] VITALS: BP 134/81
[2016-09-20] MEDS ORDERED: LOSARTAN 50 MG TAB PO SCH (12:38)
--- NOTE | 2016-09-20 13:00 | NUR ---
PT TOLERATED MEDS WELL. PT SITTING IN BED. PT DENIES PAIN. NO S/S OF DISTRESS. CALL LIGHT WITHIN REACH. SAFETY MEASURES IN PLACE. WILL CONTINUE TO MONITOR.
--- NOTE | 2016-09-20 14:16 | NUR ---
CM NOTE CONCURRENT REVIEW SENT TO [facility] FAX# [phone] PH# [phone] DEPT [id number]
[2016-09-20 16:00] VITALS: BP 157/84
--- NOTE | 2016-09-20 16:19 | NUR ---
PT SITTING IN BED. FAMILY MEMBERS AT BEDSIDE. NO S/S OF DISTRESS. CALL LIGHT WITHIN REACH. SAFETY MEASURES ENSURED. WILL CONTINUE TO MONITOR.
--- NOTE | 2016-09-20 19:13 | NUR ---
ENDORSED PLAN OF CARE TO NIGHT NURSE. CONDITION STABLE.
--- NOTE | 2016-09-20 19:15 | NUR ---
RECEIVED REPORT FROM DAY RN FOR CONTINUITY OF CARE. PATIENT IS A&OX4, DISCUSSED PLAN OF CARE WITH PATIENT AND FAMILY MEMBERS AT BEDSIDE, VERBALIZED UNDERSTANDING. SHIFT ASSESSMENT DONE, VS TAKEN, STABLE. NO S/S OF RESPIRATORY DISTRESS NOTED ON ROOM AIR. PATIENT DENIES PAIN AT THIS TIME. IV TO LT HAND 22 GAUGE PATENT AND FLUSHED. SKIN INTACT. SAFETY/ FALL PRECAUTIONS ENFORCED. PT REFUSED SCDS AT THIS TIME. CALL LIGHT WITHIN REACH. WILL CONTINUE TO MONITOR.
[2016-09-20 20:00] VITALS: BP 143/71
--- NOTE | 2016-09-20 20:34 | NUR ---
DUE MEDICATIONS ADMINISTERED, TOLERATED WELL. BLOOD SUGAR 214 ADMINISTERED INSULIN PER MD ORDER. ALL NEEDS MET AT THIS TIME. CALL LIGHT WITHIN REACH.
--- NOTE | 2016-09-20 22:00 | NUR ---
PT IS SLEEPING. NO S/S OF DISTRESS OR DISCOMFORT NOTED. WILL CONTINUE TO MONITOR.
[2016-09-21] VITALS: BP 161/72
[2016-09-21] MEDS: cloNIDine 0.1 MG TAB PO SCH ×3 (00:05→11:58)
--- NOTE | 2016-09-21 00:05 | NUR ---
VS TAKEN, TEMP 99.1 REMOVED BLANKET AND IMPLEMENTED COOLING MEASURES. B/P 161/72, ADMINISTERED BP MEDICATIONS PER MD ORDER. CALL LIGHT WITHIN REACH. WILL CONTINUE TO MONITOR.
--- NOTE | 2016-09-21 02:07 | NUR ---
PATIENT IS SLEEPING. NO S/S OF DISTRESS OR DISCOMFORT NOTED. WILL CONTINUE TO MONITOR.
[2016-09-21 04:00] VITALS: BP 143/79
--- NOTE | 2016-09-21 04:03 | NUR ---
VS TAKEN, STABLE. PT STATES SLIGHT HEADACHE, REFUSED PAIN MEDICATION. CALL LIGHT WITHIN REACH. WILL CONTINUE TO MONITOR.
[2016-09-21] MEDS: CLINDAMYCIN 600 MG in DEXTROSE 5% 50 ML IV SCH ×2 (05:25→12:58)
--- NOTE | 2016-09-21 05:34 | NUR ---
B/P 160/103 HR 77, ADMINISTERED BP MEDICATION PER MD ORDER.
[2016-09-21] MEDS: BLOOD GLUCOSE MONITORING 1 DEV DEV FS SCH ×2 (06:31→11:51)
[2016-09-21 06:36] LABS: WHITE BLOOD COUNT (AUTO) 11.9 K/uL (4.8-10.8)
[2016-09-21 06:37] LABS: HEMATOCRIT 38.8 % (36-48); HEMOGLOBIN 12.8 g/dL (12.0-16.0); LYMPHOCYTES % (AUTO) 19.9 % (20.5-51.1); MEAN CORPUSCULAR HEMOGLOBIN 26 pg (27-31); MEAN CORPUSCULAR HGB CONC 33 g/dL (33-37); MEAN CORPUSCULAR VOLUME 80 fL (80-94); MONOCYTES % (AUTO) 8.3 % (1.7-9.3); NEUTROPHILS % (AUTO) 65.8 % (42.2-75.2); PLATELET COUNT (AUTO) 375 K/uL (140-450); RED BLOOD CELL COUNT(AUTO) 4.87 MIL/uL (4.20-5.40); RED CELL DISTRIBUTION WIDTH 14.1 % (11.6-13.7)
[2016-09-21 06:38] LABS: BASOPHILS # (AUTO) 0.1 K/uL (0.00-0.22); BASOPHILS % (AUTO) 0.7 % (0.0-2.0); EOSINOPHILS # (AUTO) 0.6 K/uL (0-0.4); EOSINOPHILS % (AUTO) 5.3 % (0.0-4.0); LYMPHOCYTES # (AUTO) 2.4 K/uL (2.5-16.5); NEUTROPHILS # (AUTO) 7.8 K/uL (1.8-7.7)
[2016-09-21] MEDS ORDERED: LEVOFLOXACIN 500 MG/D5W PREMIX 100 ML IV SCH (07:00)
[2016-09-21 07:12] LABS: ANION GAP 11.3 (8-16); CALCIUM 9.1 mg/dL (8.5-10.1); CHLORIDE 103 mmol/L (98-107); CREATININE 1.1 mg/dL (0.6-1.3); GLUCOSE 145 mg/dL (74-106); POTASSIUM 4.3 mmol/L (3.5-5.1); SODIUM SERUM 137 mmol/L (136-145); UREA NITROGEN, BLOOD 20 mg/dL (7-18)
--- NOTE | 2016-09-21 07:24 | NUR ---
ENDORSED PATIENT TO DAY RN FOR CONTINUITY OF CARE, PATIENT IS IN STABLE CONDITION.
--- NOTE | 2016-09-21 07:25 | NUR ---
RECEIVED PT IN BED AWAKE, ALERT, ORIENTEDX4. BREATHING EVEN AND UNLABORED. DENIES ANY PAIN OR DISCOMFORT. POSITIVE BOWEL SOUNDS ON ALL FOUR QUADRANTS. DENIES ANY PROBLEMS WITH VOIDING AND BM. AMBULATING INDEPENDENTLY. SAFETY PRECAUTION IN PLACE. CALL LIGHT WITHIN REACH. KEPT COMFORTABLE. NEEDS ATTENDED.
[2016-09-21 08:00] VITALS: BP 152/69
[2016-09-21] MEDS: metFORMIN 500 MG TAB PO SCH (08:59)
[2016-09-21] MEDS: FUROSEMIDE 40 MG TAB PO SCH (09:00)
[2016-09-21] MEDS ORDERED: LOSARTAN 50 MG TAB PO SCH (09:00)
[2016-09-21] MEDS: glyBURIDE 2.5 MG TAB PO SCH (09:00)
[2016-09-21] MEDS: METOPROLOL SUCCINATE 50 MG TABER PO SCH (09:18)
[2016-09-21] MEDS: POTASSIUM CHLORIDE 8 MEQ TABER PO SCH (09:18)
[2016-09-21] MEDS: SPIRONOLACTONE 25 MG TAB PO SCH (09:18)
[2016-09-21 12:00] VITALS: BP 157/90
--- NOTE | 2016-09-21 12:00 | NUR ---
PT CONSUMED 45% OF HER BREAKFAST AND 95% FOR LUNCH. PT HAD FLUIDS TOLERATED. DENIES ANY PAIN OR DISCOMFORT. HAD 1 BM AND VOIDING OK.
[2016-09-21] MEDS: INSULIN LISPRO SLIDING SCALE 100 UNITS/ML VIAL SUBQ PRN (12:03)
[2016-09-21] MEDS ORDERED: LEVO750T2 PO (13:08)
[2016-09-21] MEDS ORDERED: CLON0.1T42 PO (13:08)
[2016-09-21] MEDS ORDERED: LOSA50TA1 PO (13:08)
[2016-09-21] MEDS ORDERED: CLIN300C2 PO (13:08)
[2016-09-21] MEDS ORDERED: SPIR25TA PO (13:08)
[2016-09-21] MEDS ORDERED: METO50TE2 PO (13:08)
[2016-09-21 13:18] VITALS: BP 132/70
--- NOTE | 2016-09-21 13:35 | NUR ---
09/21/16 RD INITIAL ASSESSMENT COMPLETED PLEASE REFER TO NUTRITION ASSESSMENT UNDER CARE ACTIVITY FOR ESTIMATED NUTRITIONAL NEEDS. RD RECOMMENDATIONS: 1. CONTINUE 2GM NA DIET TOLERATED PER MD 2. RECOMMEND ADDING CCHO 60 GM TO CURRENT DIET ORDER D/T ELEVATED GLUCOSE LEVELS 3. ENCOURAGE ADEQUATE PO INTAKE 4. RD WILL F/U 3-5 DAYS; MODERATE RISK. LUDIVINA HALLMAN, RD
--- NOTE | 2016-09-21 15:30 | NUR ---
DISCHARGE ORDER MADE BY AND CARRIED OUT.
--- NOTE | 2016-09-21 15:45 | NUR ---
PT SIGNED DISCHARGE PAPERS. PT MADE AWARE OF DISCHARGE INSTRUCTIONS AND HEALTH TEACHINGS PROVIDED. PT VERBALIZED UNDERSTANDING. IV REMOVED, IV CANNULA INTACT. TELE MONITOR REMOVED. PT IN STABLE CONDITION, NO COMPLAINTS OF PAIN OR DISCOMFORT AT THIS TIME. ARM BAND REMOVED. PT WHEELED OUTSIDE BY CATH LAB TECH. PT WITH FAMILY. WENT HOME PER PRIVATE OWN VEHICLE
--- NOTE | 2016-09-21 15:50 | NUR ---
PT WENT LEFT THE HOSPITAL ON STABLE CONDITION.
== END 2016-09-21 15:50 | disposition home or self-care (01) | DRG 871 ==
LOC: MED 21:53 → MTU 09-16 03:52 → MIC 09-17 10:31 → MTU 09-18 17:00
PROVIDERS: ADMIT Preventive Medicine Preventive Medicine/Occupational Environmental Medicine; ATTEND Preventive Medicine Preventive Medicine/Occupational Environmental Medicine
DX: A41.9 Sepsis, unspecified organism (principal); J18.9 Pneumonia, unspecified organism; I50.43 Acute on chronic combined systolic (congestive) and diastolic (congestive) heart failure; J96.21 Acute and chronic respiratory failure with hypoxia; E87.0 Hyperosmolality and hypernatremia; J44.0 Chronic obstructive pulmonary disease with (acute) lower respiratory infection; E87.6 Hypokalemia; I16.0 Hypertensive urgency; I11.0 Hypertensive heart disease with heart failure; R62.7 Adult failure to thrive; E11.65 Type 2 diabetes mellitus with hyperglycemia; R31.9 Hematuria, unspecified; E88.09 Other disorders of plasma-protein metabolism, not elsewhere classified; Z60.2 Problems related to living alone; Z91.19 Patient's noncompliance with other medical treatment and regimen; Z88.0 Allergy status to penicillin; Z88.8 Allergy status to other drugs, medicaments and biological substances; Z79.899 Other long term (current) drug therapy; Z79.84 Long term (current) use of oral hypoglycemic drugs; Z92.21 Personal history of antineoplastic chemotherapy; Z87.891 Personal history of nicotine dependence; Z85.3 Personal history of malignant neoplasm of breast; Z92.3 Personal history of irradiation
CPT/HCPCS: 36415; 70450; 71010; 71250; 80048; 80053; 81001; 82382; 82533; 82948; 83605; 83880; 84439; 84443; 84484; 85025; 85610; 85651; 85730; 86140; 87040; 87081; 87086; 93005; 93880; 93976; 99285; J0360; J1815; J1956; J2060; J3490; J7030; J7060; Q0092

== ENCOUNTER 2016-10-11 19:00 | Emergency (ER) | payer MEDICARE, MEDICAID ==
[~2016-10-11] VITALS: Ht 160 cm; Wt 88.5 kg
[~2016-10-11 19:00] MED LIST changes: +CLIN300C2 PO; +CLON0.1T42 PO; -CLON0.1T78 PO; -ENAL20TA31 PO; +LEVO750T2 PO; +LOSA50TA1 PO; +METO50TE2 PO; +SPIR25TA PO
[2016-10-11 19:15] VITALS: BP 171/88
--- NOTE | 2016-10-11 21:08 | NUR ---
PT TAKEN TO BED 6
--- NOTE | 2016-10-11 21:15 | NUR ---
PATIENT PRESENTS TO ED WITH ELEVATED BP AND SEVERE HEADACHE, LEFT SIDE PAIN. DENIES N/V/D; SKIN IS PINK/WARM/DRY; AAOX4 WITH EVEN AND STEADY GAIT; LUNGS CLEAR BL; HR EVEN AND REGULAR; PT DENIES ANY FEVER, CP, SOB, OR COUGH AT THIS TIME; PATIENT STATES PAIN OF 5/10 AT THIS TIME; VSS; PATIENT POSITIONED FOR COMFORT; HOB ELEVATED; BEDRAILS UP X2; BED DOWN. ER MD MADE AWARE OF PT STATUS.
--- NOTE | 2016-10-11 22:32 | NUR ---
Dr. Zazueta evaluating patient at bedside.
[2016-10-11 22:53] VITALS: BP 161/78
--- NOTE | 2016-10-11 22:53 | NUR ---
Patient discharged with v/s stable. Written and verbal after care instructions given and explained. Patient alert, oriented and verbalized understanding of instructions. Ambulatory with steady gait. All questions addressed prior to discharge. ID band removed. Patient advised to follow up with PMD. Patient educated on indication of medication including possible reaction and side effects. Opportunity to ask questions provided and answered.
== END 2016-10-11 22:53 | disposition home or self-care (01) ==
LOC: MED 19:00
DX: I10 Essential (primary) hypertension (principal); R51 Headache; E11.9 Type 2 diabetes mellitus without complications; Z85.3 Personal history of malignant neoplasm of breast; Z88.0 Allergy status to penicillin; Z88.8 Allergy status to other drugs, medicaments and biological substances; Z79.899 Other long term (current) drug therapy
CPT/HCPCS: 99283

== ENCOUNTER 2017-02-28 17:38 | Emergency (ER) | payer MEDICARE, MEDICAID ==
[~2017-02-28] VITALS: Ht 157.5 cm; Wt 91.6 kg
[2017-02-28 19:01] VITALS: BP 133/71
--- NOTE | 2017-02-28 19:45 | NUR ---
Pt placed in bed 4.
--- NOTE | 2017-02-28 19:54 | NUR ---
71/F c/o cough since Monday, 2 days ago. Pt states she admitted here with PNA in August 2016. Pt c/o dry, non productive cough. Lungs sounds diminshed bilateral lobes. Respirations even and unlabored. Pt denies SOB.Denies fever or chills. Denies N/V/D. AOX4, ambulatory with steady gait. VSS.
--- NOTE | 2017-02-28 20:08 | NUR ---
Patient being evaluated by Dr. Garcia at bedside.
--- NOTE | 2017-02-28 20:21 | NUR ---
X-Ray at bedside.
--- NOTE | 2017-02-28 20:50 | NUR ---
Patient resting comfortably in bed. Bed in lowest position. VSS. No distress noted. All needs met.
--- NOTE | 2017-02-28 20:52 | NUR ---
Dr. Garcia re-evaluating patient at bedside.
[2017-02-28 21:02] VITALS: BP 136/87
--- NOTE | 2017-02-28 21:02 | NUR ---
Patient discharged with v/s stable. Written and verbal after care instructions given and explained. Patient alert, oriented and verbalized understanding of instructions. Ambulatory with steady gait. All questions addressed prior to discharge. ID band removed. Patient advised to follow up with PMD this week. Rx of Azithromycin 250mg given. Patient educated on indication of medication including possible reaction and side effects. Opportunity to ask questions provided and answered.
== END 2017-02-28 21:02 | disposition home or self-care (01) ==
LOC: MED 17:38
DX: J06.9 Acute upper respiratory infection, unspecified (principal); E11.9 Type 2 diabetes mellitus without complications; I10 Essential (primary) hypertension; Z88.0 Allergy status to penicillin; Z88.8 Allergy status to other drugs, medicaments and biological substances; Z79.899 Other long term (current) drug therapy; Z85.3 Personal history of malignant neoplasm of breast; Z79.84 Long term (current) use of oral hypoglycemic drugs
CPT/HCPCS: 71010; 99283

== ENCOUNTER 2022-09-27 16:23 | Emergency (ER) | payer MEDICARE, MEDICAID ==
[~2022-09-27] VITALS: Ht 157.5 cm; Wt 84.8 kg
[~2022-09-27 16:23] MED LIST changes: +GLU500 PO; -METF500T64 PO
[2022-09-27 16:49] VITALS: BP 104/53
--- NOTE | 2022-09-27 16:54 | NUR ---
PT AMBULATED TO ER BED 1
[2022-09-27] MEDS ORDERED: POLY15DR4 OP (17:06)
[2022-09-27] MEDS ORDERED: HYDR25CA1 PO (17:08)
--- NOTE | 2022-09-27 17:30 | NUR ---
76 Y/O FEMALE BIB SELF C/O BILATERAL EYE PAIN X3 DAYS, NOTED DISCHARGE ON THE EYES. 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
--- NOTE | 2022-09-27 17:34 | NUR ---
Patient discharged with v/s stable. Written and verbal after care instructions given and explained. Patient alert, oriented and verbalized understanding of instructions. Ambulatory with steady gait. All questions addressed prior to discharge. ID band removed. Patient advised to follow up with PMD. Rx of VISTARIL, ARTIFICIAL TEARS DROPS given. Patient educated on indication of medication including possible reaction and side effects. Opportunity to ask questions provided and answered.
== END 2022-09-27 17:34 | disposition home or self-care (01) ==
LOC: MED 16:23
DX: H10.9 Unspecified conjunctivitis (principal); I10 Essential (primary) hypertension; E11.9 Type 2 diabetes mellitus without complications; Z79.4 Long term (current) use of insulin; Z79.899 Other long term (current) drug therapy
CPT/HCPCS: 99283